=== PATIENT | female | born 1980 | race African-American/Black ===

== ENCOUNTER 2020-12-29 10:50 | Outpatient (CLI) | payer BC ==
[2020-12-30 10:34] LABS: SARS-CoV-2 PCR by NAA Not Detected (NotDetected)
== END 2020-12-29 10:51 | disposition home or self-care (01) ==
LOC: CSHLAB 10:50
PROVIDERS: ATTEND Surgery
DX: Z20.822 Contact with and (suspected) exposure to COVID-19 (principal); K21.9 Gastro-esophageal reflux disease without esophagitis
CPT/HCPCS: U0003; U0005

== ENCOUNTER 2021-01-03 07:23 | Day surgery (SDC) | payer BC ==
[2021-01-03 06:59] VITALS: BMI 48.2
[2021-01-03] MEDS ORDERED: Lidocaine 1% MPF 2 ML VIAL ONE (07:36)
[2021-01-03] MEDS ORDERED: PROPOFOL 20 ML ONE (08:34)
[2021-01-03] MEDS ORDERED: Fentanyl 100 MCG/2 ML VIAL ONE (08:35)
[2021-01-03] MEDS ORDERED: Midazolam HCl 2 mg/2 ml Vial ONE (08:35)
[2021-01-03] MEDS ORDERED: Lidocaine 1% PF 5 ML VIAL ONE (08:35)
== END 2021-01-03 09:21 | disposition home or self-care (01) ==
LOC: CSHSDC 07:23
PROVIDERS: ATTEND Surgery
PROC: 0DB68ZZ Excision of Stomach, Via Natural or Artificial Opening Endoscopic (ICD-10-PCS; principal; 2021-01-03)
DX: K29.50 Unspecified chronic gastritis without bleeding (principal); K21.9 Gastro-esophageal reflux disease without esophagitis; E66.01 Morbid (severe) obesity due to excess calories; K44.9 Diaphragmatic hernia without obstruction or gangrene
CPT/HCPCS: 88305; J2250; J2704; J3010